=== PATIENT | male | born 1990 | race Caucasian/White ===

== ENCOUNTER 2018-10-30 21:55 | Inpatient (IN) | payer MEDICAID ==
[~2018-10-30] VITALS: Ht 180.3 cm; Wt 95.3 kg
[2018-10-30] MEDS ORDERED: ACETAMINOPHEN 325MG TABLET PO STA (23:34)
[2018-10-30 23:56] LABS: HEMATOCRIT. 43.9 % (42.0-52.0); HEMOGLOBIN. 15.2 g/dL (14.0-18.0); MEAN CORPUSCULAR HEMOGLOBIN 31.2 pg (28.0-32.0); MEAN CORPUSCULAR VOLUME 90.1 fL (80.0-94.0); PLATELET 172 x1000/uL (130-400); RED BLOOD CELL COUNT 4.87 mill/uL (4.7-6.1); RED CELL DISTRIBUTION WIDTH 13.6 % (11.6-14.6)
[2018-10-31 00:02] LABS: CHLORIDE 97 mEq/L (98-107)
[2018-10-31 00:05] LABS: CLARITY URINE CLEAR (CLEAR); COLOR URINE DARK YELLOW (YELLOW); KETONES URINE 4+ (NEGATIVE); LEUKOCYTE ESTERASE URINE TRACE (NEGATIVE); NITRITE URINE NEGATIVE (NEGATIVE); OCCULT BLOOD URINE NEGATIVE (NEGATIVE); PH URINE 5.5 (4.5-8.0); PROTEIN URINE TRACE (NEGATIVE); SPECIFIC GRAVITY URINE 1.035 (1.005-1.030)
[2018-10-31 02:29] LABS: PLATELET ESTIMATE NORMAL
[2018-10-31 04:05] VITALS: BP 130/85
[2018-10-31 04:56] VITALS: BP 130/85
[2018-10-31 08:00] VITALS: BP 122/74
[2018-10-31] MEDS ORDERED: SODIUM CHLORIDE 0.9% 1,000 ML IV SCH (08:24)
[2018-10-31] MEDS ORDERED: ACETAMINOPHEN 325MG TABLET PO PRN (08:30)
[2018-10-31] MEDS ORDERED: DIPHENHYDRAMINE 50MG/ML VIAL IV PRN (08:30)
[2018-10-31] MEDS ORDERED: HYDROCODONE/ACETAMINOPHEN 5/325MG TABLET PO PRN (08:30)
[2018-10-31] MEDS ORDERED: ONDANSETRON HCL 4MG/2ML INJ IV PRN (08:30)
[2018-10-31] MEDS ORDERED: DEXTROSE 50% WATER 50ML SYRINGE IV PRN (08:45)
[2018-10-31] MEDS ORDERED: ENOXAPARIN 40MG/0.4ML SYR SUBCUT SCH (09:00)
[2018-10-31] MEDS ORDERED: BLOOD SUGAR DIAGNOSTIC STRIP TEST SCH (12:20)
[2018-10-31] MEDS ORDERED: INSULIN LISPRO 100 UNITS/ML SUBCUT SCH (12:50)
== END 2018-10-31 11:21 | disposition left against medical advice (07) ==
LOC: ER 21:55 → 6WST 10-31 01:42 → EDBEDREQ 10-31 01:45 → EDBEDREQSVC 10-31 01:45 → ENRESERV 10-31 02:27
PROVIDERS: ADMIT Internal Medicine; ATTEND Internal Medicine
DX: K80.20 Calculus of gallbladder without cholecystitis without obstruction (principal); R74.0 Nonspecific elevation of levels of transaminase and lactic acid dehydrogenase [LDH]; Z53.21 Procedure and treatment not carried out due to patient leaving prior to being seen by health care provider
CPT/HCPCS: 36415; 71045; 76705; 82962; 84484; 93005; 96372; 99285; J1650

== ENCOUNTER 2018-10-31 21:18 | Inpatient (IN) | payer MEDICAID ==
[~2018-10-31] VITALS: Ht 180.3 cm; Wt 94.8 kg
[2018-11-01] MEDS ORDERED: ONDANSETRON HCL 4MG/2ML INJ IV STA (03:38)
[2018-11-01] MEDS ORDERED: MORPHINE SULFATE 4 MG/ML CPJ (NOT FOR IM USE) IV STA ×2 (03:38→05:41)
[2018-11-01 06:08] LABS: BASOPHILS % 0.5 % (0.0-2.0); EOSINOPHILS % 0.1 % (0.0-5.0); HEMATOCRIT. 47.7 % (42.0-52.0); HEMOGLOBIN. 16.1 g/dL (14.0-18.0); LYMPHOCYTES % 30.3 % (20.0-50.0); MEAN CORPUSCULAR HEMOGLOBIN 30.8 pg (28.0-32.0); MEAN CORPUSCULAR VOLUME 91.3 fL (80.0-94.0); MONOCYTES % 14.6 % (2.0-8.0); NEUTROPHILS % 54.5 % (40.0-76.0); PLATELET 181 x1000/uL (130-400); RED BLOOD CELL COUNT 5.23 mill/uL (4.7-6.1); RED CELL DISTRIBUTION WIDTH 13.4 % (11.6-14.6)
[2018-11-01 06:15] LABS: CHLORIDE 97 mEq/L (98-107)
[2018-11-01 09:10] VITALS: BP 137/84
[2018-11-01] MEDS ORDERED: ONDANSETRON 4MG/5ML UDC PO SCH (10:00)
[2018-11-01] MEDS: HYDROMORPHONE HCL/PF 2MG/ML CPJ IV PRN ×3 (11:14→21:35)
[2018-11-01] MEDS: DEXT 5%/0.45% NACL 1000ML 1,000 ML IV SCH ×2 (13:09→19:45)
[2018-11-01] MEDS ORDERED: ONDANSETRON HCL 4MG/2ML INJ IV PRN (14:00)
[2018-11-01 20:00] VITALS: BP 131/89
[2018-11-01] MEDS ORDERED: POTASSIUM CHLORIDE INJ 40 MEQ in DEXT 5% WATER 500 ML IV SCH (21:00)
[2018-11-01 22:58] LABS: CLARITY URINE CLOUDY (CLEAR); COLOR URINE DARK YELLOW (YELLOW); KETONES URINE 1+ (NEGATIVE); LEUKOCYTE ESTERASE URINE NEGATIVE (NEGATIVE); NITRITE URINE NEGATIVE (NEGATIVE); OCCULT BLOOD URINE NEGATIVE (NEGATIVE); PROTEIN URINE TRACE (NEGATIVE); SPECIFIC GRAVITY URINE 1.025 (1.005-1.030); UROBILINOGEN URINE 0.2 E.U./dL (0.2-1.0)
[2018-11-01 23:08] LABS: *AMPHETAMINES SCREEN URINE NEGATIVE (NEGATIVE); *BARBITURATES SCREEN URINE NEGATIVE (NEGATIVE); *BENZODIAZEPINES SCREEN URINE NEGATIVE (NEGATIVE); *COCAINE SCREEN URINE NEGATIVE (NEGATIVE); METHADONE URINE SCREEN NEGATIVE (NEGATIVE); OPIATES URINE SCREEN PRESUMTIVE POSITIVE (NEGATIVE)
[2018-11-01 23:09] LABS: CANNABINOID URINE SCREEN PRESUMTIVE POSITIVE (NEGATIVE); PHENCYCLIDINE URINE SCREEN NEGATIVE (NEGATIVE)
[2018-11-02] VITALS: BP 129/85
[2018-11-02] MEDS: HYDROMORPHONE HCL/PF 2MG/ML CPJ IV PRN ×6 (02:31→22:58)
[2018-11-02 04:00] VITALS: BP 119/84
[2018-11-02] MEDS: DEXT 5%/0.45% NACL 1000ML 1,000 ML IV SCH ×3 (05:53→19:11)
[2018-11-02 06:51] LABS: BASOPHILS % 0.2 % (0.0-2.0); EOSINOPHILS % 0.1 % (0.0-5.0); HEMATOCRIT. 48.4 % (42.0-52.0); HEMOGLOBIN. 16.2 g/dL (14.0-18.0); LYMPHOCYTES % 24.4 % (20.0-50.0); MEAN CORPUSCULAR HEMOGLOBIN 30.6 pg (28.0-32.0); MEAN CORPUSCULAR VOLUME 91.2 fL (80.0-94.0); MEAN PLATELET VOLUME 9.9 fl (7.4-10.4); MONOCYTES % 8.7 % (2.0-8.0); NEUTROPHILS % 66.6 % (40.0-76.0); PLATELET 198 x1000/uL (130-400); RED CELL DISTRIBUTION WIDTH 13.5 % (11.6-14.6)
[2018-11-02 07:05] LABS: CHLORIDE 97 mEq/L (98-107)
[2018-11-02 08:00] VITALS: BP 133/83
[2018-11-02] MEDS ORDERED: ENOXAPARIN 40MG/0.4ML SYR SUBCUT SCH (10:00)
[2018-11-02 11:45] LABS: AMYLASE 921 IU/L (25-115)
[2018-11-02] MEDS: CEFOXITIN SODIUM 2 G in DEXT 5% WATER 100 ML IV SCH ×2 (11:56→19:11)
[2018-11-02 12:00] VITALS: BP 126/83
[2018-11-02 16:00] VITALS: BP 150/83
[2018-11-02 20:00] VITALS: BP 141/88
[2018-11-03] VITALS: BP 120/73
[2018-11-03] MEDS: DEXT 5%/0.45% NACL 1000ML 1,000 ML IV SCH ×3 (01:13→15:50)
[2018-11-03] MEDS: CEFOXITIN SODIUM 2 G in DEXT 5% WATER 100 ML IV SCH ×3 (03:26→16:36)
[2018-11-03] MEDS: HYDROMORPHONE HCL/PF 2MG/ML CPJ IV PRN ×4 (03:27→16:05)
[2018-11-03 04:00] VITALS: BP 135/77
[2018-11-03 07:14] LABS: BASOPHILS % 0.2 % (0.0-2.0); HEMATOCRIT. 42.5 % (42.0-52.0); HEMOGLOBIN. 14.3 g/dL (14.0-18.0); LYMPHOCYTES % 12.7 % (20.0-50.0); MEAN CORPUSCULAR HEMOGLOBIN 30.7 pg (28.0-32.0); MEAN CORPUSCULAR VOLUME 91.2 fL (80.0-94.0); MEAN PLATELET VOLUME 9.9 fl (7.4-10.4); MONOCYTES % 8.8 % (2.0-8.0); NEUTROPHILS % 78.3 % (40.0-76.0); PLATELET 178 x1000/uL (130-400); RED BLOOD CELL COUNT 4.66 mill/uL (4.7-6.1); RED CELL DISTRIBUTION WIDTH 13.2 % (11.6-14.6)
[2018-11-03 07:58] VITALS: BP 139/106
[2018-11-03 08:00] VITALS: BP 139/106
[2018-11-03 08:14] LABS: CHLORIDE 95 mEq/L (98-107)
[2018-11-03 08:29] LABS: AMYLASE 242 IU/L (25-115)
[2018-11-03 12:00] VITALS: BP 138/96
[2018-11-03 15:36] VITALS: BP 121/67
[2018-11-03] MEDS ORDERED: IOPAMIDOL 61% 300/15 ML VIAL IT ONE (19:34)
[2018-11-03] MEDS ORDERED: LIDOCAINE HCL 1% 20ML VIAL (Pyxis) INJ ONE (19:34)
[2018-11-03] MEDS ORDERED: BUPIVACAINE HCL/PF 0.5% (5MG/ML) 10ML ONE (19:34)
[2018-11-03] MEDS ORDERED: SODIUM CHLORIDE 0.9% 1,000 ML ONE (19:35)
[2018-11-03] MEDS ORDERED: BACITRACIN 50,000 UNITS/VIAL ONE (19:35)
[2018-11-03] MEDS ORDERED: NORMAL SALINE 0.9% 10 ML SYR ONE (19:35)
[2018-11-03] MEDS ORDERED: FENTANYL CITRATE/PF 50MCG/ML 2ML VIAL ONE ×2 (20:01→22:01)
[2018-11-03] MEDS ORDERED: MIDAZOLAM HCL 2 MG/2 ML VIAL ONE (20:01)
[2018-11-03] MEDS ORDERED: ROCURONIUM BROMIDE 10MG/ML VIAL 5ML IV ONE (20:02)
[2018-11-03] MEDS ORDERED: PROPOFOL 200MG/20ML VIAL IV ONE (20:02)
[2018-11-03] MEDS ORDERED: LIDOCAINE HCL/PF 1% 10 MG/ML 5ML VIAL ONE (20:02)
[2018-11-03] MEDS ORDERED: DEXAMETHASONE 4MG/ML 1ML VIAL ONE (20:22)
[2018-11-03] MEDS ORDERED: ONDANSETRON HCL 4MG/2ML INJ ONE (20:22)
[2018-11-03] MEDS ORDERED: SKIN ADHESIVE 0.7 GM EA TOP ONE (21:08)
[2018-11-03] MEDS ORDERED: GLYCOPYRROLATE 0.2 MG/ML 2ML VIAL ONE (21:33)
[2018-11-03] MEDS ORDERED: KETOROLAC 30MG/ML VIAL ONE (22:01)
[2018-11-03] MEDS ORDERED: HYDROMORPHONE HCL/PF 2MG/ML CPJ IV PRN (22:15)
[2018-11-04] VITALS (7 sets, daily range): BP systolic 107–134; BP diastolic 56–81
[2018-11-04] MEDS: DEXT 5%/0.45% NACL KCL 20MEQ/L 1,000 ML IV SCH ×3 (00:25→16:45)
[2018-11-04] MEDS: HYDROMORPHONE HCL/PF 2MG/ML CPJ IV PRN ×4 (01:27→11:01)
[2018-11-04] MEDS: CEFOXITIN SODIUM 2 G in DEXT 5% WATER 100 ML IV SCH ×3 (03:26→16:45)
[2018-11-04 07:48] LABS: HEMATOCRIT. 39.8 % (42.0-52.0); HEMOGLOBIN. 13.4 g/dL (14.0-18.0); MEAN CORPUSCULAR HEMOGLOBIN 30.8 pg (28.0-32.0); MEAN CORPUSCULAR VOLUME 91.4 fL (80.0-94.0); MEAN PLATELET VOLUME 9.2 fl (7.4-10.4); PLATELET 204 x1000/uL (130-400); RED BLOOD CELL COUNT 4.35 mill/uL (4.7-6.1); RED CELL DISTRIBUTION WIDTH 13.3 % (11.6-14.6)
[2018-11-04 09:31] LABS: CHLORIDE 97 mEq/L (98-107)
[2018-11-04] MEDS: KETOROLAC 30MG/ML VIAL IV SCH ×2 (12:55→16:45)
[2018-11-04 16:03] LABS: PLATELET ESTIMATE NORMAL
[2018-11-04] MEDS ORDERED: ROCURONIUM BROMIDE 10MG/ML VIAL 5ML IV ONE (20:20)
[2018-11-04] MEDS ORDERED: FENTANYL CITRATE/PF 50MCG/ML 2ML VIAL ONE (20:20)
[2018-11-04] MEDS ORDERED: MIDAZOLAM HCL 2 MG/2 ML VIAL ONE (20:21)
[2018-11-04] MEDS ORDERED: PROPOFOL 200MG/20ML VIAL IV ONE (20:21)
[2018-11-04] MEDS ORDERED: NEOSTIGMINE METHYLSULFATE 1MG/ML 10 ML VIAL ONE (20:21)
[2018-11-04] MEDS ORDERED: ONDANSETRON HCL 4MG/2ML INJ ONE (20:39)
[2018-11-04] MEDS ORDERED: DEXAMETHASONE 4MG/ML 1ML VIAL ONE (20:39)
[2018-11-04] MEDS ORDERED: SODIUM CHLORIDE 0.9% 10ML VIAL ONE (20:39)
[2018-11-04] MEDS ORDERED: CEFAZOLIN SODIUM 1000MG/VIAL ONE (20:40)
[2018-11-04] MEDS ORDERED: HYDROMORPHONE HCL/PF 2MG/ML (OR) ONE (21:02)
== END 2018-11-04 17:54 | disposition left against medical advice (07) | DRG 263 ==
LOC: ER 21:18 → 6EST 11-01 05:21 → EDBEDREQTM 11-01 05:26 → EDBEDREQSVC 11-01 05:26 → EDBEDREQ 11-01 05:26 → ENRESERV 11-01 07:07
PROVIDERS: ADMIT Internal Medicine; ATTEND Internal Medicine
PROC: 0FT44ZZ Resection of Gallbladder, Percutaneous Endoscopic Approach (ICD-10-PCS; principal; 2018-11-03)
DX: K85.10 Biliary acute pancreatitis without necrosis or infection (principal); E87.8 Other disorders of electrolyte and fluid balance, not elsewhere classified; E87.1 Hypo-osmolality and hyponatremia; Z53.21 Procedure and treatment not carried out due to patient leaving prior to being seen by health care provider; E87.6 Hypokalemia; F17.210 Nicotine dependence, cigarettes, uncomplicated; F12.90 Cannabis use, unspecified, uncomplicated
CPT/HCPCS: 36415; 73706; 74181; 76705; 80061; 80305; 82150; 82962; 83036; 88304; 96365; 96375; 99285; C1893; J0690; J0694; J1100; J1170; J1650; J1885; J2250; J2270; J2405; J2704; J2710; J3010; J3480; J3490; J7030; J7060; Q9967

== ENCOUNTER 2018-11-05 18:52 | Emergency (ER) | payer MEDICAID ==
[~2018-11-05] VITALS: Ht 180.3 cm; Wt 91.0 kg
[2018-11-05] MEDS ORDERED: ONDANSETRON 4MG ODT PO ONE (19:45)
[2018-11-05] MEDS ORDERED: MORPHINE SULFATE 10 MG/ML CPJ IV ONE (19:45)
[2018-11-05] MEDS ORDERED: MORPHINE SULFATE 4 MG/ML CPJ (NOT FOR IM USE) IV NR (20:00)
[2018-11-05 20:46] LABS: BASOPHILS % 0.2 % (0.0-2.0); EOSINOPHILS % 0.3 % (0.0-5.0); HEMATOCRIT. 41.7 % (42.0-52.0); HEMOGLOBIN. 13.8 g/dL (14.0-18.0); LYMPHOCYTES % 13.9 % (20.0-50.0); MEAN CORPUSCULAR VOLUME 90.7 fL (80.0-94.0); MEAN PLATELET VOLUME 8.4 fl (7.4-10.4); MONOCYTES % 10.1 % (2.0-8.0); NEUTROPHILS % 75.5 % (40.0-76.0); PLATELET 367 x1000/uL (130-400); RED CELL DISTRIBUTION WIDTH 13.3 % (11.6-14.6)
[2018-11-05 20:51] LABS: INR 1.2; PROTHROMBIN TIME 11.7 sec (9.1-11.1)
[2018-11-05 20:55] LABS: CHLORIDE 101 mEq/L (98-107)
[2018-11-05 21:25] VITALS: BP 118/74
== END 2018-11-06 02:39 | disposition home or self-care (01) ==
LOC: ER 18:52
DX: R10.84 Generalized abdominal pain (principal); F12.10 Cannabis abuse, uncomplicated; Z90.49 Acquired absence of other specified parts of digestive tract
CPT/HCPCS: 36415; 80053; 80076; 83690; 85025; 85610; 96374; 99283; J2270; Q0162